=== PATIENT | male | born 2005 | race Two or more races ===

== ENCOUNTER 2024-09-13 11:26 | Emergency (ER) | payer BC, SELFPAY ==
[2024-09-13 12:12] VITALS: BP 146/68; PULSE 88; RESP 19; TEMP 36.8; O2SAT 99; BMI 24.4
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
[2024-09-13 13:20] LABS: Basophils # (Auto) 0.0 Thou/mm3 (0.0-0.2); Basophils % (Auto) 0 % (0-2.5); Eosinophils # (Auto) 0.1 Thou/mm3 (0.0-0.5); Eosinophils % (Auto) 1 % (0-10); Hematocrit 40.4 % (41.0-53.0); Hemoglobin 14.3 g/dL (13.5-16.0); Immature Granulocytes Auto 0.03 Thou/mm3 (0.00-0.00); Lymphocytes # (Auto) 1.4 Thou/mm3 (1.0-4.8); Lymphocytes % (Auto) 18 % (10-50); Mean Corpuscular HGB Conc 35.4 g/dl (31.0-37.0); Mean Corpuscular Hemoglobin 31.9 pg (25.0-35.0); Mean Corpuscular Volume 90 fL (80-100); Monocytes # (Auto) 0.7 Thou/mm3 (0.0-0.8); Monocytes % (Auto) 9 % (0-12); Neutrophils # (Auto) 5.7 Thou/mm3 (1.8-7.7); Neutrophils % (Auto) 72 % (37-80); Nucleated Red Blood Cell # 0.00 Thou/mm3 (0.00-0.00); Nucleated Red Blood Cell % 0 /100 WBC (0); Platelet Count 270 Thou/mm3 (140-440); RDW Standard Deviation 38.8 fL (35.1-43.9); Red Blood Count 4.48 Miln/mm3 (4.50-5.90); White Blood Count 8.0 Thou/mm3 (4.5-11.0)
[2024-09-13 13:31] LABS: INR 1.0 (0.9-1.3); Partial Thromboplastin Time 27.2 Seconds (22.0-36.0); Prothrombin Time 10.8 Seconds (9.0-12.2)
[2024-09-13 13:35] LABS: Alanine Aminotransferase 21 U/L (10-49); Albumin, Serum 4.9 gm/dL (3.5-5.0); Albumin/Globulin Ratio 2.5 (1.2-2.2); Alkaline Phosphatase 53 U/L (46-116); Anion Gap 9 (7-16); Aspartate Amino Transferase 23 U/L (0-34); BUN/Creatinine Ratio 12 Ratio (12-20); Bilirubin,Total 0.6 mg/dL (0.3-1.2); Blood Urea Nitrogen 12 mg/dL (9-23); Calcium 10.3 mg/dL (8.3-10.6); Calcium (Corrected) 10.3 mg/dL (8.5-10.1); Carbon Dioxide 29.8 mMol/L (20.0-31.0); Chloride 101 mMol/L (98-107); Creatinine (Component) 1.0 mg/dL (0.6-1.3); Estimated Creatinine Clearance 117.8 mL/min (>60); Globulin 2.0 gm/dL (2.3-3.5); Glucose 99 mg/dL (74-106); Osmolality,Calculated 279 (275-295); Potassium 3.9 mMol/L (3.4-5.1); Sodium 140 mMol/L (136-145); Total Protein 6.9 gm/dL (5.7-8.2); eGFR > 60 See Note
[2024-09-13 14:10] VITALS: BP 147/78; PULSE 78; RESP 18; TEMP 37; O2SAT 98
--- NOTE | 2024-09-13 14:14 | PD.EDEPIST ---
ED Epistaxis RME/HPI General Chief complaint: Epistaxis/Nasal Foreign Body Stated complaint: Nosebleed since 0600 Time Seen by Provider: 09/13/24 12:44 Source: patient Arrival date/time: 09/13/24 11:26 Mode of arrival: ambulatory Limitations: no limitations RME / HPI RME / HPI Narrative: 19-year-old male who states he developed spontaneous, anterior, nosebleeds this morning. This happened twice and lasted approximately 20 to 30 minutes. Denies any injuries. Denies any chronic medical illness. Denies any acute weakness or near syncope. He has no other acute complaints. MD complaint: epistaxis Location: right nostril Related Data Allergies Allergy/AdvReac Type Severity Reaction Status Date / Time No Known Drug Allergies Allergy Verified 09/13/24 11:30 Review of Systems Review of Systems Systems Reviewed: All systems reviewed, normal except as documented ED Exam General Limitations: Present no limitations General appearance: Present alert and in no apparent distress Head Head exam: Present atraumatic Eye Eye exam: Present normal appearance, PERRL and EOMI ENT ENT exam: Present normal exam, normal oropharynx and mucous membranes moist Neck Neck exam: Present normal inspection, full ROM and trachea midline Chest Chest inspection: Present normal inspection and symmetric chest wall rise Respiratory Respiratory exam: Present normal lung sounds bilaterally Cardiovascular Cardiovascular exam: Present regular rate, normal rhythm and normal heart sounds Abdominal Exam Abdominal exam: Present soft and normal bowel sounds Extremities Exam Extremities exam: Present normal inspection and full ROM Back Exam Back exam: Present normal inspection and full ROM Neurological Exam Neurological exam: Present alert and oriented X3 Psychiatric Psychiatric exam: Present normal affect and normal mood Skin Skin exam: Present warm, dry, intact and normal color Course Course Course Narrative: CBC, CMP, PT, PTT Quality Measures none Orders Category Date Time Status CBC Stat Lab 09/13/24 13:06 Completed CMP [Comprehensive Metabolic Panel] Stat Lab 09/13/24 13:06 Completed PT [Prothrombin Time with INR] Stat Lab 09/13/24 13:06 Completed PTT [Partial Thromboplastin Time] Stat Lab 09/13/24 13:06 Completed Vital Signs Vital signs: Vital Signs Temperature 98.3 F 09/13/24 12:12 Pulse Rate 88 09/13/24 12:12 Respiratory Rate 19 09/13/24 12:12 Blood Pressure 146/68 H 09/13/24 12:12 Pulse Oximetry (%) 99 07/14/25 12:12 Oxygen Delivery Method Room Air 09/13/24 12:12 Epistaxis MDM Narrative MDM Narrative:: 19-year-old male who states he developed spontaneous, anterior, nosebleeds this morning. This happened twice and lasted approximately 20 to 30 minutes. Denies any injuries. Denies any chronic medical illness. Denies any acute weakness or near syncope. He has no other acute complaints. At the time of our visit, patient's workup was complete and he had no active bleeding. CBC, CMP, and PT/INR within normal limits. We discussed the need to apply direct pressure if bleeding returns for 20 minutes. He will return here when he continues. Patient data External records reviewed:: None Clinical information provided by:: patient Social determinants that could affect healthcare access:: none Patient has the following chronic illnesses:: n/a How is presenting disease/condition affected by chronic disease/condition?: no chronic disease Evaluation data The following diagnostics were reviewed and interpreted by me:: lab results (CBC, CMP, PT/INR are unremarkable) Lab and/or radiology exams considered but not ordered:: n/a Interpretation Summary: Platelets within normal limits. No anemia present. PT/INR within normal limits Medications / Prescriptions Medications or Prescriptions considered but not ordered:: n/a Medication administrations:: n/a Consultations Consultation(s) initiated? (list below): No Diagnosis Epistaxis Differential Diagnosis: anterior epistaxis Most likely diagnosis given after review of the tests above:: Spontaneous nosebleed Admission Indicated Admission indicated?: not indicated Admission Request Was there a request for admission?: No Disposition Plan Disposition Plan: Discharge Discharge Attestation Discharge Attestation: The patient and all family members were given an opportunity to ask questions and understood the discharge instructions. Discharge instructions specifically effects, indications for sooner follow up or return to the emergency department, and the expected course of current diagnosis. Patient condition: Stable Discharge Plan Plan Patient Disposition: HOME (Self Care) Patient condition on transfer: Stable Prescriptions/Referrals Referrals: No Primary/Family,Physician [Primary Care Provider] - In 1 week Problem List Clinical Impression: Epistaxis Patient/Caregiver Discharge Instructions Education Materials: ED Epistaxis (Adult) Additional Instructions: - If bleeding returns, apply direct pressure to the distal end of your nose for 20 minutes. If bleeding continues, please return here. Print Language: French Stand Alone Forms: [employer] Patient Portal Info Letter
== END 2024-09-13 14:24 | disposition home or self-care (01) ==
PROVIDERS: Physician Assistant; Emergency Provider Emergency Medicine
DX: R04.0 Epistaxis (principal)
CPT/HCPCS: 36415; 80053; 85025; 85610; 85730; 99283